=== PATIENT | male | born 1980 | race African-American/Black ===

== ENCOUNTER 2016-11-19 10:27 | Emergency (ER) | payer OTHER ==
[~2016-11-19] VITALS: Ht 172.7 cm; Wt 72.6 kg
--- NOTE | ~2016-11-19 | CR63 ---
[facility] RADIOLOGY TEXT RESULTS PATIENT: JOHN ANAYA LOCATION: [place] : [birth year] UNIT #: [id number] AGE: [address]: Nina Adams APRN SEX: M ORDER DR: [id number] [facility] [address] [facility] [address] [place], [place] [address] [id number] MR#: [id number] #: [id number] NAME: JOHN ANAYA : 1980 SEX: M STUDY DATE/TIME: 11/19/2016 UNIT: [place] ROOM: STUDY DESCRIPTION: CR Chest 2 View Attending Physician: Nina Adams A.P.R.N. Ordering Physician: Ed Doctor [id number] [facility] Primary Care Physician: Primary Care Physician No MEDICAL IMAGING REPORT This report is preliminary unless electronic signature is present EXAM Chest 2 views 11/19/2016 12:03 hours HISTORY 36-year-old complaining of left rib pain with palpable knot since 11/18/2016. Patient states he injured his ribs while wrestling with children. COMPARISON 04/01/2012 FINDINGS Upright PA and lateral views of the chest demonstrate normal cardiac, mediastinal and hilar contours. The lungs are well expanded and clear of acute densities. Benign calcified granulomata are unchanged. No rib fracture, pleural effusion or pneumothorax is seen. IMPRESSION 1. No acute cardiopulmonary findings. There are benign calcified granulomatous changes. 2. No rib fracture or rib lesion is seen. There is no pleural effusion or pneumothorax. Dictated by... Lillian Anthony M.D. THIS IS AN ELECTRONICALLY VERIFIED REPORT Lillian Anthony M.D. at 11/19/2016 2:32 PM M/timothy TD: 11/19/2016 13:56 JOB #: [id number] [facility] RADIOLOGY TEXT RESULTS PATIENT: JOHN ANAYA LOCATION: [place] : [birth year] UNIT #: [id number] AGE: [address]: Nina Adams APRN SEX: M ORDER DR: MEDICAL IMAGING REPORT Page 1 of 1 COPY
[~2016-11-19 10:27] MED LIST: DARVOCET-N 1001 TAB PO; KEFLEX PO; PHENERGAN25 M1 DOB; VICODIN 5/1 TAB 5/50 PO; VICODIN 5/500 T1 TAB PO
== END 2016-11-19 13:05 | disposition home or self-care (01) ==
LOC: CED 10:27 → CFTX 10:27
DX: S20.212A Contusion of left front wall of thorax, initial encounter (principal); R03.0 Elevated blood-pressure reading, without diagnosis of hypertension; Z88.0 Allergy status to penicillin; F17.210 Nicotine dependence, cigarettes, uncomplicated; Y93.72 Activity, wrestling; Y92.009 Unspecified place in unspecified non-institutional (private) residence as the place of occurrence of the external cause
CPT/HCPCS: 71020; 99284